=== PATIENT | male | born 1990 | race Caucasian/White ===

== ENCOUNTER 2018-04-11 12:11 | Emergency (ER) | payer MEDICAID, OTHER ==
[~2018-04-11] VITALS: Ht 177.8 cm; Wt 81.8 kg
[2018-04-11 12:54] VITALS: BP 142/84
[2018-04-11] MEDS ORDERED: ondansetron 4mg rapidly disintigrating tab PO ONE (13:45)
== END 2018-04-11 14:53 | disposition home or self-care (01) ==
LOC: ER 12:14
DX: F15.90 Other stimulant use, unspecified, uncomplicated (principal); R11.2 Nausea with vomiting, unspecified; F12.90 Cannabis use, unspecified, uncomplicated; Z86.19 Personal history of other infectious and parasitic diseases; Z98.890 Other specified postprocedural states; Z60.2 Problems related to living alone
CPT/HCPCS: 93005; 99283

== ENCOUNTER 2018-04-13 05:03 | Emergency (ER) | payer MEDICAID, OTHER ==
[~2018-04-13] VITALS: Ht 177.8 cm; Wt 78.0 kg
[2018-04-13] MEDS ORDERED: ondansetron 4mg rapidly disintigrating tab PO ONE (06:05)
[2018-04-13] MEDS ORDERED: benzonatate 100mg capsule PO ONE (06:05)
[2018-04-13] MEDS ORDERED: ketorolac trometh inj. 60 MG/2 ML VIAL IM ONE (06:05)
[2018-04-13] MEDS ORDERED: ONDA8TAB6 PO (06:06)
[2018-04-13] MEDS ORDERED: MELO-102 PO (06:06)
[2018-04-13] MEDS ORDERED: BENZ-38 PO (06:06)
[2018-04-13 06:30] VITALS: BP 113/54
== END 2018-04-13 06:51 | disposition home or self-care (01) ==
LOC: ER 05:04
DX: J06.9 Acute upper respiratory infection, unspecified (principal); F12.90 Cannabis use, unspecified, uncomplicated; Z86.19 Personal history of other infectious and parasitic diseases; Z98.890 Other specified postprocedural states; Z60.2 Problems related to living alone; Z91.048 Other nonmedicinal substance allergy status; Z79.899 Other long term (current) drug therapy
CPT/HCPCS: 96372; 99283; J1885